=== PATIENT | female | born 2000 | race Caucasian/White ===

== ENCOUNTER 2020-02-01 12:02 | Inpatient (IN) | payer OTHER, MEDICAID ==
[~2020-02-01] VITALS: Ht 172.7 cm; Wt 85.0 kg
[2020-02-01] VITALS (33 sets, daily range): BP systolic 105–129; BP diastolic 55–87; PULSE 53–92; TEMP 97.8–98.6
[2020-02-01] MEDS ORDERED: PRENATAL TABLET PO (12:28)
--- NOTE | 2020-02-01 12:39 | NUR ---
PT PRESENTS TO LABOR AND DELIVERY BECAUSE SHE THINKS HER WATER BROKE AT 10:10 THIS MORNING WHILE SHE WAS AT WORK. WAS STANDING AND FELT LEAKING. FHT'S FOUND IN THE 140'S WITH MODERATE VARIABILITY AND ACCELS. SVE /-2. AMNIOTRACE NEGATIVE. PHONED DR JEAN BAPTISTE AT 1224 WITH ABOVE INFORMATION. ORDER RECEIVED TO HAVE PT WALK FOR 20 MINUTES AND THEN REST FOR 20 MINUTES AND RECHECK PT. PT DENIES CONTRACTIONS BUT THEY ARE APPEARING REGULARLY ON THE MONITOR EVERY 90-110SECONDS, PALPATE MILD, AND LAST 40-50 SECONDS. PT STATES IT JUST FEELS LIKE HER STOMACH IS TIGHTENING. ASSESSMENT COMPLETED. WILL HAVE PT WALK ONCE COMPLETE NST.
--- NOTE | 2020-02-01 13:15 | NUR ---
REPEAT AMNIOTRACE AT 1300 IS POSITIVE. SVE NOW 1-2/80/-2 WITH CERVIX MORE MIDPOSITION AND TO THE RIGHT. FHT'S WITH MODERATE VARIABILITY AND ACCELS. PHONED DR JEAN BAPTISTE AT 1305 WITH AMNIOTRACE UPDATE AND SVE UPDATE. ORDER RECEIVED TO ADMIT PT, START AN INT AND PT CAN AMBULATE IF SHE DESIRES.
--- NOTE | 2020-02-01 13:45 | NUR ---
ASSESSMENT COMPLETED. INT STARTED IN LEFT HAND. PLAN OF CARE REVIEWED WITH PT.
[2020-02-01 13:59] LABS: BASO % 0.3 % (0.0-2.0); EOS % 0.2 % (0-4.0); GRAN # 7.8 (1.4-6.5); GRAN % 77.5 % (42.2-75.2); HEMOGLOBIN 11.9 g/dl (12.0-15.0); LYMPH # 1.6 (1.2-3.4); LYMPH % 15.8 % (20.0-51.0); MEAN CELL VOLUME 92 fl (80.0-95.0); MEAN CORPUSCULAR HEMOGLOBIN 32 pg (26.0-32.0); MEAN CORPUSCULAR HGB CONC 35 g/dl (33.0-37.0); MEAN PLATELET VOLUME 12.1 fl (7.4-10.4); MONO # 0.5 (0.1-0.6); MONO % 5.3 % (1.7-9.3); PLATELET COUNT 129 K/mm3 (130-400); RED BLOOD COUNT 3.73 M/mm3 (4.10-5.30); REDCELL DISTRIBUTION WIDTH-CV 12.4 % (11.5-14.5)
[2020-02-01 14:01] LABS: HEMATOCRIT 34.2 % (35.0-45.0)
--- NOTE | 2020-02-01 15:15 | NUR ---
PT AMBULATED FROM 1355 TO 1425 AND THEN SAT ON BIRTHING BALL UNTIL 1455. REPORTS INITIALLY WAS FEELING MORE CONTRACTIONS AND NOW SHE ISN'T FEELING THEM MUCH. NO MORE LEAKING OF FLUID. PT HAD SNACK OF JELLO, WATER, AND A SLUSH.
--- NOTE | 2020-02-01 16:15 | NUR ---
SVE AT 1550 REMAINS UNCHANGED. HEAD FEELS MORE BALLOTABLE. NO LEAKING OF FLUID WITH SVE AND PT REPORTS SHE HAS NOT LEAKED ANY MORE FLUID SINCE SHE HAS BEEN HERE. PHONED DR JEAN BAPTISTE WITH UPDATE AT 1554 OF SVE WITH NO CHANGE. WANTS AN AMNISURE DONE TO MAKE SURE MEMBRANES ARE RUPTURED. AMNISURE AT 1609. EXPLAINED PLAN OF CARE WITH PT AND SIGNIFICANT OTHER.
--- NOTE | 2020-02-01 17:15 | NUR ---
DR FARIAS CALLS AT 1713 FOR STATUS UPDATE HE IS TAKING OVER CARE OF THE PT AT THIS TIME. UPDATED ON SVE, PITOCIN AT 2MU WHEN HE CALLED AND UPDATED ON PT DEMOGRAPHICS.
--- NOTE | 2020-02-01 17:45 | NUR ---
COVID SWAB OBTAINED AT 1735 AND SENT FOR RAPID RESULTS PER DR FARIAS. TOCO REPOSITIONED IN ATTEMPT TO MONITOR CONTRACTIONS BETTER.
--- NOTE | 2020-02-01 18:00 | NUR ---
CONTRACTIONS DIFFICULT TO MONITOR. REPOSITIONED TOCO. PT REPORTS SHE IS FEELING MORE CONTRACTIONS. FHT'S WITH MODERATE VARIABILITY AND ACCELS.
--- NOTE | 2020-02-01 21:23 | NUR ---
2044 - Pt starting to get more uncomfortable with contractions, SVE 2-3/90/-2. Pt requesting epidural at this time. Sorin Fulton CRNA notified, will come to hospital. 2104 - Category 1 FHR tracing obtained. Monitors off, pt up to bathroom to void. 2119 - FLAQUITA Menendez at bedside. Epidural procedure, risks, and benefits reviewed, pt verbalized understanding. Pt positioned to sitting on edge of bed. 2122 - Single shot by FLAQUITA Menendez at this time. Pt denies adverse reactions 2129 - Pt positioned to wedge left. Safety precautions reviewed. Bed in low and locked position. Call light within reach. See anesthesia record.
--- NOTE | 2020-02-01 22:19 | NUR ---
Florez catheter placed to dependent drainage. Clear, yellow urine returned. Secured to leg with statlock. SVE 4/-1, bag of water felt on exam.
[2020-02-02] VITALS (44 sets, daily range): BP systolic 96–131; BP diastolic 54–92; PULSE 48–98; TEMP 98.1–98.7
--- NOTE | 2020-02-02 05:25 | NUR ---
at bedside. Artificial rupture of forebag, clear fluid noted. SVE /+1. Plan of care updated with patient and FOB.
--- NOTE | 2020-02-02 06:45 | NUR ---
0633- Florez removed without difficulty. 0640- Pt begins pushing with UCs, RN remains at bedside. FHR not tracing well during pushes.
--- NOTE | 2020-02-02 07:48 | NUR ---
0738- Dr Londono at bedside. Pt and room prepped for delivery. Steve, Nursery RN at bedside. 0748- of viable female . Infant to mother's abd, tended to by nursery RN. Pitocin off. Cord blood obtained. 0752- Spontaneous delivery of placenta. Pitocin restarted at 333ml/hr. Fundus massaged to firm by . 0807- Red Kishore by , appox 50mls. Pericare completed. Ice pack to perineum. 0815- Pt assisted to sitting upright in bed. Shortly after, Pt nauseous, vomits small amount. Pt very pale in color. Hed of bed lowered, BP checked. Call light within reach. 9735- Pt verbalizes feeling better. Encouraged to call out with concerns.
--- NOTE | 2020-02-02 10:50 | NUR ---
1040- Pt feeling nausous and very tired. Discussd with Pt the possibility of her passing out while getting up to the bathroom. Pt agrees and wants to try the bedpan before straight cath. Bedpan given and instructed to call out when finished. 1050- Pt calls out, unable to void. Pt continues to feel nausous. Staight cath by this RN, 250 of applejuice colored urine noted. Pericare completed. Ice pack and underwear on. Gown changed. Pt requests to try to move to PP room. Pt transfers to wheelchair with minimal assist. Pt turns very pale and Pt states, "I feel like Im going to pass out." RN remains with Pt. Call light pressed. Pt passes out. Gallo Mariscal RN at bedside. Pt awakens spontaneously. Cold washcloth to Pt's forehead. Pt assisted back to bed. VSS. Pt encouraged to sleep and call out if RN needed. Pt verbalizes understanding.
[2020-02-02] MEDS ORDERED: IBU600 MG PO (15:39)
[2020-02-03] VITALS: BP 109/65; PULSE 69; TEMP 97.5
[2020-02-03 07:35] VITALS: BP 112/72; PULSE 92; TEMP 98
[2020-02-03 11:10] VITALS: BP 108/59; PULSE 88; TEMP 98.5
[2020-02-03 16:30] VITALS: BP 177/77; PULSE 82; TEMP 98.3
[2020-02-03 19:45] VITALS: BP 109/69; PULSE 77; TEMP 98.3
[2020-02-04 07:30] VITALS: BP 126/68; PULSE 87; TEMP 98.6
[2020-02-04] MEDS ORDERED: PERCOCET 325 MG1 TA2 PO (11:29)
== END 2020-02-04 14:15 | disposition home or self-care (01) | DRG 807 ==
LOC: LDRO 12:02 → LDR 13:08 → OB 02-02 09:00
PROVIDERS: ADMIT Student in an Organized Health Care Education/Training Program
PROC: 10E0XZZ Delivery of Products of Conception, External Approach (ICD-10-PCS; principal; 2020-02-01)
PROC: 0KQM0ZZ Repair Perineum Muscle, Open Approach (ICD-10-PCS; 2020-02-01)
PROC: 10907ZC Drainage of Amniotic Fluid, Therapeutic from Products of Conception, Via Natural or Artificial Opening (ICD-10-PCS; 2020-02-01)
DX: O70.1 Second degree perineal laceration during delivery (principal); Z37.0 Single live birth; Z3A.39 39 weeks gestation of pregnancy; Z20.828 Contact with and (suspected) exposure to other viral communicable diseases
CPT/HCPCS: J2590; J2795; J7120

== ENCOUNTER → 2020-10-06 | Outpatient (CLI) | payer OTHER ==
[~2020-10-06] MED LIST: IBU600 MG PO; PERCOCET 325 MG1 TA2 PO; PRENATAL TABLET PO
== END ==
LOC: COL.LAB 18:55
DX: M25.572 Pain in left ankle and joints of left foot (principal)

== ENCOUNTER 2023-12-06 18:19 | Inpatient (IN) | payer OTHER ==
[2023-12-06] VITALS (12 sets, daily range): BP systolic 97–1085; BP diastolic 57–79; PULSE 56–73; TEMP 97.8–98.2
[~2023-12-06] VITALS: Ht 175.3 cm; Wt 77.3 kg
[2023-12-06] MEDS ORDERED: LR & Oxytocin 500 ML IV SCH ×2 (19:00)
[2023-12-06] MEDS ORDERED: LR 1,000 ML IV SCH (19:00)
[2023-12-06 19:26] LABS: BASO % 0.3 % (0.0-2.0); EOS # 0.1 K/mm3 (0.0-0.7); EOS % 0.6 % (0.0-4.0); GRAN # 7.9 K/mm3 (1.4-6.5); GRAN % 73.4 % (42.2-75.2); HEMATOCRIT 37.7 % (37.0-47.0); HEMOGLOBIN 13.1 g/dl (12.5-16.0); LYMPH % 18.5 % (20.0-51.0); MEAN CELL VOLUME 94 fl (80.0-100.0); MEAN CORPUSCULAR HEMOGLOBIN 33 pg (27-31); MEAN CORPUSCULAR HGB CONC 35 g/dl (33.0-37.0); MEAN PLATELET VOLUME 11.7 fl (7.4-10.4); MONO # 0.7 K/mm3 (0.1-0.6); MONO % 6.6 % (1.7-9.3); PLATELET COUNT 132 K/mm3 (130-400); RED BLOOD COUNT 4.02 M/mm3 (4.10-5.30); REDCELL DISTRIBUTION WIDTH-CV 12.3 % (11.5-14.5)
[2023-12-06] MEDS ORDERED: ROPivacaine PF 0.2% 200 ML IV ONE (20:33)
[2023-12-06] MEDS ORDERED: diphenhydrAMINE 50 MG/ML 1 ML VIAL IV PRN (21:00)
[2023-12-06] MEDS ORDERED: diphenhydrAMINE 25 MG CAP PO PRN (21:00)
[2023-12-06] MEDS ORDERED: Ondansetron 4 MG/2 ML VIAL IV PRN (21:00)
[2023-12-06] MEDS ORDERED: ePHEDrine 50 MG/10 ML VIAL IV PRN (21:00)
[2023-12-06] MEDS ORDERED: Naloxone 0.4 MG/ML VIAL IV PRN (21:00)
--- NOTE | 2023-12-06 21:45 | NUR ---
2144 FHR DECEL DOWN TO 100'S FOR 9 MINS, PITOCIN OFF, IV BOLUS STARTED. CHANGED POS TO LEFT LATERAL. 2152 CHANGED POS TO RIGHT LATERAL.
--- NOTE | 2023-12-06 22:20 | NUR ---
DR JEAN BAPTISTE HERE ON THE UNIT, INFORMED HER THE FHR DECEL AND NURSING INTERVENTIONS. PITOCIN IS OFF. WILL CONTINUE TO MONITOR FHR. 2210 PT POSITION TO HIGH FOWLERS POSITION.
[2023-12-07] VITALS (14 sets, daily range): BP systolic 98–125; BP diastolic 50–70; PULSE 55–70; TEMP 97.9–98.3
--- NOTE | 2023-12-07 00:27 | NUR ---
0005 DR JEAN BAPTISTE IN ROOM SVE PT COMPLETE. PT PREPPED FOR DELIVERY, PUSHING 0027 VAG DELIVERY FEMALE INFANT. BABY PLACED ON MOMS ABD, CORD CLAMPED AFTER 1 MIN. AND CUT BY FOB. BABY DRIED AND STIMULATED. BABY CRYING. PT HAS 2ND DEGREE LAC WITH REPAIR.
[2023-12-07] MEDS ORDERED: Magnes Hydrox (MOM) 80 MG/ML 30 ML CUP PO PRN (01:00)
[2023-12-07] MEDS ORDERED: Naloxone 0.4 MG/ML VIAL IV PRN (01:00)
[2023-12-07] MEDS ORDERED: Loratadine 10 MG TAB PO PRN (01:00)
[2023-12-07] MEDS ORDERED: Mag/Al Hydrox/Simeth Susp 30 ML CUP PO PRN (01:00)
[2023-12-07] MEDS ORDERED: Witch Hazel 50% Pads Bulk TUB TP PRN (01:00)
[2023-12-07] MEDS ORDERED: Ibuprofen 800 MG TAB PO SCH (01:00)
[2023-12-07] MEDS ORDERED: Acetaminophen 500 MG TAB PO SCH (01:00)
[2023-12-07] MEDS ORDERED: Measles/Mumps/Rubella Virus Vaccine Live w Diluent 0.5 ML VIAL SQ SCH (01:00)
[2023-12-07] MEDS ORDERED: Phenylephrine/Mineral Oil/Petrolatum 57 GM TUBE RC PRN (01:00)
--- NOTE | 2023-12-07 02:30 | NUR ---
ST CATHED PT, RETURN YELLOW URINE 550 CC. PERICARE DONE, PADS CHANGED.
--- NOTE | 2023-12-07 05:00 | NUR ---
PT'S LEGS ARE STILL VERY NUMB FROM EPIDURAL. SHE IS NOT ABLE TO BEND HER KNEES, LIFT HER BOTTOM OF THE BED OR RAISE HER LEGS. NOT ABLE TO TRANSFER HER TO AT THIS TIME. ATTEMPTED TO USE THE BEDPAN WITHOUT SUCCESS. BLADDER IS NOT DISTENDED FUNDUS IS FIRM AT THE UMBILICUS. PERICARE DONE, PADS CHANGED AND GOWN CHANGED. BABY IN ROOM SLEEPING.
--- NOTE | 2023-12-07 06:30 | NUR ---
THIS RN RECIEVES REPORT ON PT FROM JUSTO FARRELL. PT COMFORTABLE IN BED, REPORTS STILL FEELING NUMB BUT CAN MOVE LOWER LEGS, DENIES ANY PAIN. THIS RN DISCUSSES THAT WE CAN ATTEMPT THE PT SITTING ON THE EDGE OF HER BED TO HELP WITH MOVEMENT AND FEELING. PT VS STABLE AND IN BED BEING CARED FOR BY PT. PT PARTNER ASLEEP IN RECLINER CHAIR. THIS RN ASKS IF PT NEEDS HELP CHANGING DIAPER AND PT REPORTS NO NEED FOR HELP.
[2023-12-07] MEDS ORDERED: Sennosides/Docusate 8.6-50 MG TAB PO SCH (08:00)
[2023-12-07] MEDS ORDERED: IBU800 M1 PO (10:32)
[2023-12-07] MEDS ORDERED: traZODone 50 MG TAB PO PRN (21:00)
[2023-12-08 01:24] VITALS: BP 91/50; PULSE 57; TEMP 98
[2023-12-08 08:30] VITALS: BP 116/76; PULSE 77
== END 2023-12-08 13:20 | disposition home or self-care (01) | DRG 807 ==
LOC: LDRO 18:19 → LDR 18:45 → OB 12-07 09:00
PROVIDERS: ADMIT Student in an Organized Health Care Education/Training Program
PROC: 10E0XZZ Delivery of Products of Conception, External Approach (ICD-10-PCS; principal; 2023-12-06)
PROC: 0KQM0ZZ Repair Perineum Muscle, Open Approach (ICD-10-PCS; 2023-12-06)
DX: O99.12 Other diseases of the blood and blood-forming organs and certain disorders involving the immune mechanism complicating childbirth (principal); Z37.0 Single live birth; D69.6 Thrombocytopenia, unspecified; Z3A.40 40 weeks gestation of pregnancy; O70.1 Second degree perineal laceration during delivery
CPT/HCPCS: J2590; J2795; J7120